=== PATIENT | male | born 1980 | race Caucasian/White ===

== ENCOUNTER 2017-12-10 19:16 | Emergency (ER) | payer OTHER ==
[2017-12-10] MEDS ORDERED: LIDOCAINE 1% 50 ML VIAL INJ ONE (19:25)
[2017-12-10] MEDS ORDERED: CHLORHEXIDINE GLUCONATE 4 % 15 ML UD TOP ONE ×2 (19:25→19:39)
[2017-12-10] MEDS ORDERED: KETOROLAC TROMETHAMINE INJ 60 MG/2 ML VIAL IM ONE (19:27)
[2017-12-10] MEDS ORDERED: TETANUS,DIPHTHERIA,PERTUSSIS 1 EA SYG IM ONE (19:27)
--- NOTE | 2017-12-10 19:30 | ED.PDOC ---
History of Present Illness - General Chief Complaint: Laceration Time Seen by Provider: 12/10/17 19:27 Source: patient Exam Limitations: no limitations - History of Present Illness Initial Comments: patient comes in today with large laceration to his left lower thigh area. Patient was climbing out of boat and caught it on the edge of the ladder. He otherwise is healthy with the exception of some depression he takes medication for. He occasionally takes Tylenol [id number] but none today. He was drinking earlier this afternoon and had 4 beers throughout the day the last one at approximately he has no bleeding disorders and no other medical history. Timing/Duration: just prior to arrival Severity: severe Location: extremities Improving Factors: nothing Worsening Factors: nothing Associated Symptoms: denies symptoms Allergies/Adverse Reactions: Allergies NO KNOWN ALLERGY Allergy (Verified 12/10/17 19:31) Review of Systems - Review of Systems Constitutional: States: no symptoms reported. Denies: fever, weakness EENTM: States: no symptoms reported Respiratory: States: no symptoms reported Cardiology: States: no symptoms reported Gastrointestinal/Abdominal: States: no symptoms reported Genitourinary: States: no symptoms reported Skin: States: see HPI Physical Exam - Physical Exam General Appearance: Alert, Anxious Cardiovascular/Chest: normal peripheral pulses, regular rate, rhythm, no edema Respiratory: chest non-tender, lungs clear, normal breath sounds, no respiratory distress Gastrointestinal/Abdominal: normal bowel sounds, non tender, soft Extremity: other - L distal thigh and medial posterior thigh with 11 cm laceration with 3 cm extension superiorly through the subcutaneous fat Procedures - Laceration/Wound Repair Left Thigh Wound Length (cm): 11 - 3 cm extension superiorly Wound's Depth, Shape: superficial Wound Explored: contaminated Irrigated w/ Saline (cc's): 250 Betadine Prep?: No - Hibacleanse Anesthesia: 1% Lidocaine Volume Anesthetic (cc's): 30 Wound Debrided: minimal Wound Repaired With: sutures Suture Size/Type: 3:0, vicryl rapide Number of Sutures: 25 Layer Closure?: Yes Deep Layer Suture Size/Type: 3:0, vicryl Number Deep Layer Sutures: 3 - to close significant defect in subcutaneous layer Sterile Dressing Applied?: Yes Splint Applied?: No Departure - Departure Clinical Impression: Laceration Disposition: Discharge to Home or Self Care Condition: Good Departure Forms: ED Discharge - Pt. Copy, Patient Portal Self Enrollment Instructions: DI for Laceration Repair, DI for Laceration Repair -- Complex Suture Diet: regular diet Activity: increase activity as tolerated Additional Instructions: Return to ER for increase temp >100.5, redness, swelling, calor, or purulence. Return to MD for removal in 10 days. Clean area BID with warm soapy water and pat dry. Do not soak area and keep clean
[2017-12-10] MEDS ORDERED: NEOMYCIN-BACITRACIN-POLYMYXIN 0.9 GM UD TOP ONE (20:21)
[2017-12-10 21:03] VITALS: TEMP 98.1
[2017-12-10 21:24] VITALS: BP 138/90; O2SAT 98
== END 2017-12-10 20:45 | disposition home or self-care (01) ==
LOC: ER 19:16
DX: S71.112A Laceration without foreign body, left thigh, initial encounter (principal); Z23 Encounter for immunization; W22.09XA Striking against other stationary object, initial encounter; Y92.814 Boat as the place of occurrence of the external cause
CPT/HCPCS: 90471; 90715; J1885